=== PATIENT | male | born 2000 | race Caucasian/White ===

== ENCOUNTER 2022-06-24 15:45 | Emergency (ER) | payer OTHER ==
[~2022-06-24] VITALS: Ht 175.3 cm; Wt 65.8 kg
[~2022-06-24 15:45] MED LIST: BACTRIM DS TAB1 EACH PO; DICLOXACILLIN250 MG PO; DOXYCYCLINE HY100 MG PO; KEFLEX500 MG PO; NAPROSYN500 MG PO
== END 2022-06-24 16:40 | disposition home or self-care (01) ==
LOC: ED 15:45
DX: R30.0 Dysuria (principal); R31.9 Hematuria, unspecified; F17.200 Nicotine dependence, unspecified, uncomplicated
CPT/HCPCS: 81001; 99283

== ENCOUNTER 2022-08-06 12:17 | Emergency (ER) | payer OTHER ==
[~2022-08-06] VITALS: Ht 172.7 cm; Wt 63.3 kg
[2022-08-06 13:36] VITALS: BP 120/74
== END 2022-08-06 13:37 | disposition home or self-care (01) ==
LOC: ED 12:17
DX: S62.399A Other fracture of unspecified metacarpal bone, initial encounter for closed fracture (principal); W22.8XXA Striking against or struck by other objects, initial encounter; F17.200 Nicotine dependence, unspecified, uncomplicated
CPT/HCPCS: 73130

== ENCOUNTER 2023-11-05 10:34 | Emergency (ER) | payer OTHER ==
[~2023-11-05] VITALS: Ht 172.7 cm; Wt 73.4 kg
[2023-11-05] MEDS ORDERED: ACID-PEP20 MG PO (11:26)
[2023-11-05 11:36] VITALS: BP 145/82
== END 2023-11-05 11:36 | disposition home or self-care (01) ==
LOC: ED 10:34
DX: K62.5 Hemorrhage of anus and rectum (principal); F17.200 Nicotine dependence, unspecified, uncomplicated
CPT/HCPCS: 99283